=== PATIENT | female | born 1955 | race Caucasian/White ===

== ENCOUNTER → 2016-09-08 | Outpatient (CLI) | payer OTHER ==
[2016-09-08 13:01] LABS: BLOOD UREA NITROGEN 22 mg/dl (7-18); BUN/CREATININE RATIO 33.6 (10-20); CALCIUM 9.1 mg/dl (8.5-10.1); CARBON DIOXIDE 31 mmol/L (21-32); CHLORIDE 105 mmol/L (98-107); CHOLESTEROL 187 mg/dl (0-200); CREATININE 0.65 mg/dl (0.60-1.20); GLUCOSE 108 mg/dl (70-99); POTASSIUM 3.8 mmol/L (3.5-5.1); SODIUM 141 mmol/L (136-145)
[2016-09-08 13:05] LABS: HDL CHOLESTEROL 62 mg/dl; LDL CHOLESTEROL CALCULATED 108 mg/dl; TRIGLYCERIDES 85 mg/dl (0-150); VERY LOW DENSITY LIPOPROT CALC 17 mg/dl
[2016-09-08 13:07] LABS: ESTIMATED AVERAGE GLUCOSE 126 mg/dl; HA1C FLAG Normal (Normal)
== END | disposition home or self-care (01) ==
LOC: C.LABPBG 07:28
PROVIDERS: ATTEND Physician Assistant
DX: I10 Essential (primary) hypertension (principal); Z13.220 Encounter for screening for lipoid disorders; Z13.1 Encounter for screening for diabetes mellitus

== ENCOUNTER → 2016-11-18 | Outpatient (CLI) | payer OTHER ==
--- NOTE | 2016-11-18 09:43 | DIAGNOSTIC IMAGING REPORT ---
EXAMINATION: RENAL ULTRASOUND CLINICAL HISTORY: Low back/flank pain. COMPARISON STUDY: FINDINGS: The right kidney measures 10.2 cm. The left kidney measures 10.1 cm. There is no evidence of hydronephrosis. There are no renal masses. No bladder abnormalities are visualized. Bilateral ureteral jets were visualized. IMPRESSION : Normal renal ultrasound. Electronically signed by: Eric Camilo M.D. 11/18/2016 9:42 AM Dictated Date/Time: 11/18/2016 9:41 AM
--- NOTE | 2016-11-18 10:10 | DIAGNOSTIC IMAGING REPORT ---
L-SPINE MIN 4 VIEWS ROUTINE CLINICAL HISTORY: Low back pain with radiation. COMPARISON: None FINDINGS: There is slight rightward curvature of the lumbar spine. Vertebral body heights are maintained. There is no fracture or suspicious lesion. Disc spaces are preserved. There is moderate multilevel facet arthrosis. A 1.3 cm calcific density within the left upper quadrant is indeterminate. IMPRESSION: 1. No lumbar spine fracture. 2. Mild multilevel degenerative disc disease and moderate multilevel facet arthrosis of the lumbar spine. Electronically signed by: Nabil Kahn M.D. 11/18/2016 10:08 AM Dictated Date/Time: 11/18/2016 9:57 AM
== END | disposition home or self-care (01) ==
LOC: C.ULTR 09:15
PROVIDERS: ATTEND Physician Assistant
DX: M54.40 Lumbago with sciatica, unspecified side (principal)

== ENCOUNTER 2019-12-01 16:05 | Observation (INO) ==
[2019-12-01] MEDS ORDERED: NITROGLYCERIN SL 0.4 MG/TAB TAB SL STA (16:22)
[2019-12-01] MEDS ORDERED: ASPIRIN CHEW 324 MG PO STA (16:24)
--- NOTE | 2019-12-01 16:33 | Emergency Department Note ---
History of Present Illness General Chief complaint: Chest Pain Stated complaint: CHEST PAINS Time Seen by Provider: 12/01/19 16:16 Source: patient, RN notes reviewed and old records reviewed Mode of arrival: ambulatory Limitations: no limitations History of Present Illness Provider complaint: Chest pain Onset (ago): week(s) 1 Location: chest Radiation: extremity (left shoulder) Severity: moderate Pain Consistency: + constant Maximum Pain Intensity: 5 Current Pain Intensity: 5 Quality: + sharp Relieved By: + immobilization Exacerbated By: + movement Associated symptoms: + weakness; no diaphoresis, no fever/chills, no nausea/vomiting and no shortness of breath Treatments prior to arrival: none This is a 64-year-old female who presents emergency department complaining of left-sided chest pain that radiates up into her left shoulder that has been ongoing for the past week. Patient relates that the chest pain is made worse by walking. She was on a walk the other day and had to stop because the pain be came so severe. She relates that rest makes the chest pain better. She does have a history of hypertension as well as sleep apnea. She also reports that the chest pain is made worse with deep breaths. Home Medications Home Medications Medication Instructions Recorded Confirmed Type CPAP Machine #1 ea 01/19/19 04/26/19 Rx miscellaneous medical supply #1 ea 01/19/19 04/26/19 Rx CPAP Machine #1 ea 03/28/19 04/26/19 Rx cholecalciferol (vitamin D3) 100 4,000 units PO DAILY #30 cap 04/30/19 12/01/19 Rx mcg (4,000 unit) capsule lisinopril 5 mg tablet 5 mg PO DAILY #90 tab 11/20/19 12/01/19 Rx ropinirole 1 mg tablet 1 mg PO HS #90 tab 11/20/19 12/01/19 Rx colchicine [Colcrys] 0.6 mg PO BID 30 Days #60 tab 12/02/19 Rx ibuprofen 600 mg PO TID 30 Days #90 tab 12/02/19 Rx Allergies Allergy/AdvReac Type Severity Reaction Status Date / Time No Known Allergies Allergy Verified 12/01/19 17:40 Past Med/Surg History Medical History Degenerative disc disease Dyslipidemia Hypertension Obstructive sleep apnea Prediabetes Restless leg syndrome Rheumatic heart disease Vitamin D deficiency Surgical History H/O adenoidectomy H/O section x 3 History of arthroscopy of shoulder (07/2011) WITH ROTATOR CUFF REPAIR ONSET:[id number] History of hysterectomy (2006) SECONDARY TO PROLAPSE ONSET:2006 History of tonsillectomy Family History Father Cardiac disorder Myocardial infarction Mother Diabetes Lung disease Brother Coronary heart disease Hx of CABG Denies family history of Ovarian cancer Prostate cancer Breast cancer Colorectal cancer Social History Preferred Language: Ukrainian Communication Ability: Effective Visual Impairment: No Limitations Hearing Ability: Normal Sterile Processing Technologist Required: No Beliefs That Will Affect Care: None marital status: Current Living Situation: Significant Other current occupational status: employed current occupation: CUSTOMER SERVICE Feels Safe at Home: Yes Smoking Status: Never smoker Second Hand Exposure: No ; Hx Alcohol Use: No Hx Substance Use: No Childhood Exposure to Second-Hand Smoke: Yes Diet Comment: arley;ar caffeine: Yes (coffee, half/ half) during the past year weight has: remained stable Dental Care, Regularly: Yes Physical Activity Frequency Comment: LIMITED BY PHYSICAL CONDITION Seatbelt Use: always Sunscreen Use: Yes Review of Systems A total of 10 systems reviewed and were otherwise negative Physical Exam Vital Signs Vital Signs - 24 hr 12/01/19 19:07 Pulse Rate 67 Respiratory Rate 15 Blood Pressure 131/77 Blood Pressure Mean 95 Pulse Oximetry 96 VITAL SIGNS - Vital signs and nursing notes were reviewed. GENERAL - 64-year-old female appearing stated age who is in no acute distress. Communicates well with provider and answers questions appropriately. SKIN - Without rashes. HEAD - NC/AT. EYES - PERRL with EOMI bilaterally. Sclera anicteric. Palpebral conjunctiva pink and moist with no injection noted. EARS - No deformities of external structures noted on gross examination bilaterally. No pain elicited with palpation of the tragus bilaterally. External auditory canals without discharge or otorrhea. Tympanic membranes pearly richard without retraction or bulging. No fluid or purulent material visualized behind the TM. Handle of malleus, umbo, cone of light, pars tensa/flaccid all easily visualized. NOSE - Midline and without cyanosis. No epistaxis or purulent drainage noted. Septum midline without deviation or septal hematoma noted. MOUTH/OROPHARYNX - Without perioral cyanosis. Buccal mucosa pink and moist and without leukoplakia. Tongue midline with equal elevation of palate bilaterally. No tonsillar hypertrophy, erythema, or exudates noted. dentition noted. NECK - Neck with FROM. Supple to palpation. lymphadenopathy noted. No nuchal rigidity. LUNGS - Chest wall symmetric without accessory muscle use, intercostals retractions, or central cyanosis. Normal vesicular breath sounds CTA B/L. No wheezes, rales, or rhonchi appreciated. CARDIAC - RRR with S1/S2. No murmur, rubs, or gallops appreciated. ABDOMEN - Abdominal contour without pulsations or visible masses. BS normoactive all four quadrants. No tenderness, palpable masses, hepatosplenomegaly, or ascites noted. EXTREMITIES - No clubbing or peripheral cyanosis. No pretibial edema present. +3/5 radial, posterior tibial, and dorsalis pedis pulses palpated throughout. +5/5 strength noted in UE/LE bilaterally. NEUROLOGIC - Cranial nerves II through XII grossly intact. Sensory intact to light touch throughout. Patellar reflexes +2/4. PSYCH - A&Ox3 and cooperates fully with examiner. Pt is very pleasant and interacts well with examiner. Course Administered Medications Discontinued Medications Acetaminophen (Tylenol) 500 mg PO Q4H PRN PRN Reason: Pain Stop: 01/01/20 08:44 Last Admin: 12/02/19 12:08 Dose: 500 mg Documented by: [id number] Aspirin (Aspirin) 324 mg PO NOW STA Stop: 12/01/19 16:25 Last Admin: 12/01/19 16:47 Dose: 324 mg Documented by: [id number] Aspirin (Ecotrin) 325 mg PO BID PATRICIA Stop: 12/08/19 21:14 Last Admin: 12/02/19 08:05 Dose: 325 mg Documented by: [id number] Admin: 12/01/19 22:47 Dose: 325 mg Documented by: [id number] Colchicine (Colcrys) 1.2 mg PO NOW ONE Stop: 12/01/19 19:57 Last Admin: 12/01/19 21:27 Dose: 1.2 mg Documented by: [id number] Colchicine (Colcrys) 0.6 mg PO BID PATRICIA Stop: 01/01/20 08:59 Last Admin: 12/02/19 08:04 Dose: 0.6 mg Documented by: [id number] Nitroglycerin (Nitrostat) 0.4 mg SL NOW STA Stop: 12/01/19 16:23 Last Admin: 12/01/19 16:48 Dose: 0.4 mg Documented by: [id number] Nitroglycerin (Nitro-Bid 2%) 1 inch EXT NOW STA Stop: 12/01/19 16:54 Last Admin: 12/01/19 17:54 Dose: 1 inch Documented by: [id number] Ropinirole HCl (Requip) 1 mg PO HS PATRICIA Stop: 12/31/19 21:14 Last Admin: 12/01/19 22:49 Dose: 1 mg Documented by: [id number] Vitamin D (Vitamin D3) 4,000 units PO DAILY PATRICIA Stop: 01/01/20 08:59 Last Admin: 12/02/19 08:04 Dose: 4,000 units Documented by: [id number] Medical Decision Making Differential Diagnosis Cardiac ischemia, aortic dissection, pulmonary embolism, pneumothorax, pneumonia, pericarditis, myocarditis, esophageal rupture, GERD, cholecystitis, pancreatitis, musculoskeletal, as well as other pathologies. Medical Records Attestation: I reviewed the patient's medical records. Home Medications Current Medication List: was personally reviewed by me Laboratory Data Attestation: I reviewed the patient's lab results. Result diagrams: 12/02/19 06:32 12/02/19 06:32 Lab Results 12/01/19 12/01/19 12/01/19 Range/Units 16:43 16:43 16:43 WBC 8.71 (4.8-10.8) K/uL RBC 4.71 (4.2-5.4) M/uL Hgb 13.3 (12.0-16.0) g/dL Hct 40.3 (37-47) % MCV 85.6 (80-100) fL MCH 28.2 (25-34) pg MCHC 33.0 (32-36) g/dL RDW Std Deviation 43.2 (36.4-46.3) fL RDW Coeff of Patito 13.7 (11.5-14.5) % Plt Count 169 (130-400) K/uL MPV 9.8 (7.4-10.4) fL Immature Gran % (Auto) 0.2 % Neut % (Auto) 63.8 % Lymph % (Auto) 28.2 % George % (Auto) 6.1 % Eos % (Auto) 1.4 % Baso % (Auto) 0.3 % Immature Gran # (Auto) 0.02 (0.00-0.02) K/uL Neut # (Auto) 5.55 (1.4-6.5) K/uL Lymph # (Auto) 2.46 (1.2-3.4) K/uL George # (Auto) 0.53 (0.11-0.59) K/uL Eos # (Auto) 0.12 (0-0.5) K/uL Baso # (Auto) 0.03 (0-0.2) K/uL ESR (0-21) mm/hr PT 11.3 (9.0-12.0) Seconds INR 1.1 (0.9-1.1) APTT 28.8 (21.0-31.0) Seconds PTT Ratio 1.0 D-Dimer 320 (0-500) ug/L FEU Sodium 138 (136-145) mmol/L Potassium 3.6 (3.5-5.1) mmol/L Chloride 106 (98-107) mmol/L Carbon Dioxide 26 (21-32) mmol/L Anion Gap 6.0 (3-11) BUN 16 (7-18) mg/dl Creatinine 0.71 (0.6-1.2) mg/dl Est Cr Clr Drug Dosing 74.4 ml/min Est GFR ( Amer) 104.3 Est GFR (Non-Af Amer) 90.0 BUN/Creatinine Ratio 22.8 H (10-20) Glucose 92 (70-99) mg/dl Calcium 8.9 (8.5-10.1) mg/dl Total Bilirubin 0.4 (0.2-1) mg/dl AST 27 (15-37) U/L ALT 66 (12-78) U/L Alkaline Phosphatase 84 (45-117) U/L Total Creatine Kinase 107 (26-192) U/L CK-MB (CK-2) 4.2 H (0.5-3.6) ng/ml CK/CKMB % Calc 3.9 H (0-3.0) Troponin I < 0.015 (0-0.045) ng/ml C-Reactive Protein 0.36 H (0-0.29) mg/dl Total Protein 7.3 (6.4-8.2) gm/dl Albumin 3.7 (3.4-5.0) gm/dl Globulin 3.6 (2.5-4.0) gm/dl Albumin/Globulin Ratio 1.0 (0.9-2) Lipase 82 (73-393) U/L 12/01/19 12/01/19 Range/Units 16:43 18:40 WBC (4.8-10.8) K/uL RBC (4.2-5.4) M/uL Hgb (12.0-16.0) g/dL Hct (37-47) % MCV (80-100) fL MCH (25-34) pg MCHC (32-36) g/dL RDW Std Deviation (36.4-46.3) fL RDW Coeff of Patito (11.5-14.5) % Plt Count (130-400) K/uL MPV (7.4-10.4) fL Immature Gran % (Auto) % Neut % (Auto) % Lymph % (Auto) % George % (Auto) % Eos % (Auto) % Baso % (Auto) % Immature Gran # (Auto) (0.00-0.02) K/uL Neut # (Auto) (1.4-6.5) K/uL Lymph # (Auto) (1.2-3.4) K/uL George # (Auto) (0.11-0.59) K/uL Eos # (Auto) (0-0.5) K/uL Baso # (Auto) (0-0.2) K/uL ESR 18 (0-21) mm/hr PT (9.0-12.0) Seconds INR (0.9-1.1) APTT (21.0-31.0) Seconds PTT Ratio D-Dimer (0-500) ug/L FEU Sodium (136-145) mmol/L Potassium (3.5-5.1) mmol/L Chloride (98-107) mmol/L Carbon Dioxide (21-32) mmol/L Anion Gap (3-11) BUN (7-18) mg/dl Creatinine (0.6-1.2) mg/dl Est Cr Clr Drug Dosing ml/min Est GFR ( Amer) Est GFR (Non-Af Amer) BUN/Creatinine Ratio (10-20) Glucose (70-99) mg/dl Calcium (8.5-10.1) mg/dl Total Bilirubin (0.2-1) mg/dl AST (15-37) U/L ALT (12-78) U/L Alkaline Phosphatase (45-117) U/L Total Creatine Kinase (26-192) U/L CK-MB (CK-2) (0.5-3.6) ng/ml CK/CKMB % Calc (0-3.0) Troponin I < 0.015 (0-0.045) ng/ml C-Reactive Protein (0-0.29) mg/dl Total Protein (6.4-8.2) gm/dl Albumin (3.4-5.0) gm/dl Globulin (2.5-4.0) gm/dl Albumin/Globulin Ratio (0.9-2) Lipase (73-393) U/L Imaging Data Radiologist's Impression: [facility] [place] [phone] XRay Report Patient: MARYLU CEVALLOS Date: 12/01/19 MR#: [id number]: [address] [place] [address] Acct ID:[id number]: Date: [address] [place] [address] Zip: [place] [address] Age: 64Location: ED Sex: F Room/Bed: Att Phy:Diagnosis: CHEST PAINS Kaylynn Phy: Michelle Costello, DOService Date: 12/01/19 Fam Phy:Interpreting Phy: Stevie Helton MD Admit Phy: Ordering Phy: Silvestre Vela MD cc: ~ XR chest 1V portable CLINICAL HISTORY: Chest Pain dyspnea COMPARISON STUDY: No previous studies for comparison. FINDINGS: The bones soft tissues and hemidiaphragms are normal. The cardiomediastinal silhouette is normal. The lungs are clear. The pulmonary vasculature is normal. IMPRESSION: Negative chest. ACT 112: Negative or not required by law. The above report was generated using voice recognition software. It may contain grammatical, syntax or spelling errors. Electronically signed by: Stevie Helton M.D. 12/01/2019 5:08 PM Dictated: 12/01/191707 Transcribed: 12/01/191707 ECG Data Attestation: I personally reviewed and interpreted this ECG as follows: Indication: chest pain Rate (beats per minute): 66 Rhythm: normal sinus Findings: + other (Premature SVC) and + prolonged QT (410); no ST depression and no ST elevation Comparison ECG Date: no prior available MDM Narrative Patient was seen and evaluated as above in room B12. Review was performed of nursing notes and vital signs. I did review pertinent previous visits and patient history. After obtaining a thorough history and physical examination the above work up was performed. This is a 64-year-old female who presents emergency department complaining of chest pain that gets worse with exertion that has been ongoing for the past week. Serial EKGs were performed here in the emergency department and at no time to the patient exhibited cardiac ischemia. Her troponin was found to be 0 however her chest pain was relieved by nitro. Based on this along with the patient's story I did discuss the case with the hospitalist service who did agree to omit the patient. Patient is in agreement with the treatment plan. An order was placed for continuous cardiac monitoring. The monitor shows a rate of 59 with Normal Sinus rhythm. The patient was evaluated during the global COVID-19 pandemic, and that diagnosis was suspected/considered upon their initial presentation. Their evaluation, treatment and testing was consistent with current guidelines for pat ients who present with complaints or symptoms that may be related to COVID-19. Impression & Plan Chest pain Discharge Plan Visit Data *Final* Discharge Date/Time: 12/01/19 20:32 Chief Complaint: Chest Pain Stated Complaint: CHEST PAINS ED Provider: Silvestre Vela Discharge Problem: Chest pain Patient Disposition: Admitted As Inpatient Discharge Instructions Interventions: ED Discharge Assessment Last Done: 12/01/19 20:32 Discharge Problem: Chest pain Qualifiers: Chest pain type: unspecified Qualified Code(s): R07.9 - Chest pain, unspecified
[2019-12-01] MEDS ORDERED: NITROGLYCERIN 2% OINTMENT 30GM TUBE EXT STA (16:53)
[2019-12-01 16:54] LABS: Basophils # (auto) 0.03 K/uL (0-0.2); Basophils % (auto) 0.3 %; Eosinophils # (auto) 0.12 K/uL (0-0.5); Eosinophils % (auto) 1.4 %; Hematocrit (blood only) 40.3 % (37-47); Hemoglobin 13.3 g/dL (12.0-16.0); Immature Granulocytes # (auto) 0.02 K/uL (0.00-0.02); Immature Granulocytes % (auto) 0.2 %; Lymphocytes # (auto) 2.46 K/uL (1.2-3.4); Lymphocytes % (auto) 28.2 %; Mean Corpuscular Hemoglobin 28.2 pg (25-34); Mean Corpuscular Volume 85.6 fL (80-100); Mean Platelet Volume 9.8 fL (7.4-10.4); Monocytes # (auto) 0.53 K/uL (0.11-0.59); Monocytes % (auto) 6.1 %; Neutrophils # (auto) 5.55 K/uL (1.4-6.5); Neutrophils % (auto) 63.8 %; Platelet Count 169 K/uL (130-400); RDW Coefficient of Variation 13.7 % (11.5-14.5); RDW Standard Deviation 43.2 fL (36.4-46.3); Red Blood Count 4.71 M/uL (4.2-5.4); White Blood Count 8.71 K/uL (4.8-10.8)
[2019-12-01 17:08] LABS: D Dimer 320 ug/L FEU (0-500); INR 1.1 (0.9-1.1); Partial Thromboplastin Time 28.8 Seconds (21.0-31.0); Prothrombin Time 11.3 Seconds (9.0-12.0)
--- NOTE | 2019-12-01 17:10 | XRay Report ---
XR chest 1V portable CLINICAL HISTORY: Chest Pain dyspnea COMPARISON STUDY: No previous studies for comparison. FINDINGS: The bones soft tissues and hemidiaphragms are normal. The cardiomediastinal silhouette is n ormal. The lungs are clear. The pulmonary vasculature is normal. IMPRESSION: Negative chest. ACT 112: Negative or not required by law. The above report was generated using voice recognition software. It may contain grammatical, syntax or spelling errors. Electronically signed by: Stevie Helton M.D. 12/01/2019 5:08 PM
[2019-12-01 17:27] LABS: Alanine Aminotransferase 66 U/L (12-78); Albumin Level 3.7 gm/dl (3.4-5.0); Aspartate Aminotransferase 27 U/L (15-37); BUN Creatinine Ratio 22.8 (10-20); Blood Urea Nitrogen 16 mg/dl (7-18); Calcium 8.9 mg/dl (8.5-10.1); Carbon Dioxide 26 mmol/L (21-32); Chloride 106 mmol/L (98-107); Creatinine Clr Calc Pharmacy 74.4 ml/min; Est GFR (African American) 104.3; Glucose 92 mg/dl (70-99); Lipase 82 U/L (73-393); Potassium 3.6 mmol/L (3.5-5.1); Sodium 138 mmol/L (136-145)
[2019-12-01 17:32] LABS: Alkaline Phosphatase 84 U/L (45-117); Bilirubin,Total 0.4 mg/dl (0.2-1); Creatine Kinase 107 U/L (26-192); Creatine Kinase MB 4.2 ng/ml (0.5-3.6); Globulin 3.6 gm/dl (2.5-4.0); Total Protein 7.3 gm/dl (6.4-8.2); Troponin I < 0.015 ng/ml (0-0.045)
--- NOTE | 2019-12-01 19:24 | History & Physical Report ---
Date of Service December 01, 2019 Assessment & Plan (1) Chest pain: Most likely pericarditis with no troponin rise and pain ongoing for last week. No troponin rise since worst pain this morning at 6am and lab taken 12 hours after this therefore goal is not for complete pain relief. Low likelihood PE given more likely alternative explanation, not tachycardic - no need for CT for PE at the current time. Admit to med/tele Monitor on telemetry overnight As history, exam and EKG not conclusive of pericarditis will consult cardiology as use aspirin initially rather than ibuprofen. CRP only mildly elevated. (2) Pericarditis: Repeat EKG in AM. If more conclusive evidence of this can switch ASA to ibuprofen Start colchicine 1.2g now, then continue 0.6mg PO BID ASA 325mg now then BID (3) Hypertension: Continue lisinopril 5mg HS (4) Obstructive sleep apnea: CPAP HS (5) Restless leg syndrome: Continue ropinirole 1mg PO daily (6) Prediabetes: HbA1C 6.2 Continue on heart healthy diet while here (7) DVT prophylaxis: SCDs Admission and Anticipated Discharge Date Admission Date: December 01, 2019 History of Present Illness Chief Complaint: Chest pain Primary Care Provider: DO Meme Toth Dioni is a 64 year old female with hypertension and obstructive sleep apnea who presents to the ER due to ongoing chest pain. She has been having ongoing chest pain for the past week, Left anterior chest, aching/heaviness, worse on exertion but never has completely resolved for the past week. Worst episode was this morning with new radiating pain to her left shoulder lasting for around 30 minutes came on at rest and resolved spontaneously. Never had a similar pain like this previously. Current severity in the ER after ASA given 09/20. No change with nitro given in ER. She had not noticed a positional change to her pain but on admission she was asked to sit up and lean over which provided her with some relief. She is compliant with her CPAP machine for SIN. No shortness of breath, fevers, cough, known COVID-19 exposure. Allergies Allergy/AdvReac Type Severity Reaction Status Date / Time No Known Allergies Allergy Verified 12/01/19 17:40 Home Medications Home Medications Medication Instructions Recorded Confirmed Type CPAP Machine #1 ea 01/19/19 04/26/19 Rx miscellaneous medical supply #1 ea 01/19/19 04/26/19 Rx CPAP Machine #1 ea 03/28/19 04/26/19 Rx cholecalciferol (vitamin D3) 100 4,000 units PO DAILY #30 cap 04/30/19 12/01/19 Rx mcg (4,000 unit) capsule lisinopril 5 mg tablet 5 mg PO DAILY #90 tab 11/20/19 12/01/19 Rx ropinirole 1 mg tablet 1 mg PO HS #90 tab 11/20/19 12/01/19 Rx Past Med/Surg History Medical History Degenerative disc disease Dyslipidemia Hypertension Obstructive sleep apnea Prediabetes Restless leg syndrome Rheumatic heart disease Vitamin D deficiency Surgical History H/O adenoidectomy H/O section x 3 History of arthroscopy of shoulder (07/2011) WITH ROTATOR CUFF REPAIR ONSET:[id number] History of hysterectomy (2006) SECONDARY TO PROLAPSE ONSET:2006 History of tonsillectomy Family History Father Cardiac disorder Myocardial infarction Mother Diabetes Lung disease Brother Coronary heart disease Hx of CABG Denies family history of Ovarian cancer Prostate cancer Breast cancer Colorectal cancer Social History Preferred Language: Pashto Communication Ability: Effective Visual Impairment: No Limitations Hearing Ability: Normal High School Science Teacher Required: No Beliefs That Will Affect Care: None marital status: Current Living Situation: Significant Other current occupational status: employed current occupation: CUSTOMER SERVICE Other Information That Helps Us Care for You: No Feels Safe at Home: Yes Safety Concerns: Feels Safe At This Time Smoking Status: Never smoker Second Hand Exposure: No ; Hx Alcohol Use: No Hx Substance Use: No Childhood Exposure to Second-Hand Smoke: Yes Diet Comment: arley;ar caffeine: Yes (coffee, half/ half) during the past year weight has: remained stable Dental Care, Regularly: Yes Physical Activity Frequency Comment: LIMITED BY PHYSICAL CONDITION Seatbelt Use: always Sunscreen Use: Yes Review of Systems Review of Systems: All systems reviewed & are unremarkable except as noted in HPI & below Physical Exam Constitutional: WD/WN, vitals as above no acute distress (despite ongoing chest pain) Eyes: + anicteric sclerae; normal pupil size ENMT: external ear and nose normal, oropharynx normal Neck: trachea midline, no thyromegaly Respiratory: normal respiratory effort, lungs clear to auscultation Cardiovascular: Rate/Rhythm: regular rate and regular rhythm Heart Sounds: + murmur (GERRI loudest LUSB) Vessels: no JVD Extremities: normal capillary refill; no calf tenderness and no pedal edema Chest (Breasts): Chest: normal inspection of chest (pain not reproducible on palpation) Gastrointestinal (Abdomen): normal bowel sounds, soft, nontender, no hepatosplenomegaly Musculoskeletal: no cyanosis or clubbing, extremities motor strength 5/5 Skin: no rashes, warm and dry Neurologic: moves all extremities and awake; no focal motor deficits and not confused Speech / Cognition: normal speech Motor/Sensory: no tremor, no pronator drift and no sensory deficit Psychiatric: A+Ox3, euthymic affect Genitourinary: no CVA tenderness Lymphatic: no cervical or axillary lymphadenopathy Results & Data Results & Data ([facility]) Vital Signs (Past 12 Hours) Vital Signs Temp Pulse Resp BP Pulse Ox 12/01/19 19:07 67 15 131/77 96 12/01/19 18:30 66 16 130/62 97 12/01/19 18:00 66 16 132/68 97 12/01/19 17:45 66 16 97 12/01/19 17:31 62 15 97 12/01/19 17:30 60 14 130/62 97 12/01/19 17:15 61 18 95 12/01/19 17:00 67 17 133/67 94 12/01/19 16:52 70 21 95 12/01/19 16:49 73 15 153/66 H 95 12/01/19 16:30 68 20 95 12/01/19 16:08 36.9 C 68 20 146/87 H 96 Diagnostic Findings XR chest 1V portable IMPRESSION: Negative chest. ECG Indication: chest pain Rate (beats per minute): 66 Rhythm: normal sinus Findings: no acute ischemic change Comparison ECG Date: no prior available Code Status & VTE Plan Code Status Full VTE Prophylaxis Plan VTE Prophylaxis will be ordered: Yes Reason for no VTE drug order: Treatment not indicated PG Care Time/CCT Total # of Minutes Spent Total Time Spent with Patient: Total time spent is greater than 50% in coordination of care (as documented) at patient's floor/unit and/or counseling patient: Coding Level of Care Code 90707 OBS Care - Level 3 Diagnoses Chest pain R07.9 Pericarditis I31.9 Hypertension I10 Obstructive sleep apnea G47.33 Restless leg syndrome G25.81 Prediabetes R73.03 DVT prophylaxis Z29.9
[2019-12-01 19:54] LABS: C Reactive Protein 0.36 mg/dl (0-0.29)
[2019-12-01] MEDS ORDERED: COLCHICINE 0.6 MG TAB PO ONE (19:56)
[2019-12-01] MEDS ORDERED: ROPINIROLE HCL 1 MG TABLET PO SCH (21:15)
[2019-12-01] MEDS: ASPIRIN 325 MG ECTAB PO SCH (22:47)
[2019-12-02 06:54] LABS: Hematocrit (blood only) 39.7 % (37-47); Hemoglobin 12.4 g/dL (12.0-16.0); Mean Corpuscular Hemoglobin 26.9 pg (25-34); Mean Corpuscular Hgb Conc 31.2 g/dL (32-36); Mean Corpuscular Volume 86.1 fL (80-100); Mean Platelet Volume 9.7 fL (7.4-10.4); Platelet Count 163 K/uL (130-400); RDW Coefficient of Variation 13.9 % (11.5-14.5); RDW Standard Deviation 43.7 fL (36.4-46.3); Red Blood Count 4.61 M/uL (4.2-5.4); White Blood Count 6.56 K/uL (4.8-10.8)
[2019-12-02 07:20] LABS: BUN Creatinine Ratio 26.1 (10-20); Blood Urea Nitrogen 17 mg/dl (7-18); Calcium 8.4 mg/dl (8.5-10.1); Carbon Dioxide 29 mmol/L (21-32); Chloride 106 mmol/L (98-107); Creatinine Clr Calc Pharmacy 83.9 ml/min; Est GFR (African American) 109.9; Est GFR (Non-African American) 94.8; Glucose 108 mg/dl (70-99); Potassium 3.8 mmol/L (3.5-5.1); Sodium 140 mmol/L (136-145)
[2019-12-02 07:24] LABS: Troponin I < 0.015 ng/ml (0-0.045)
[2019-12-02] MEDS: ASPIRIN 325 MG ECTAB PO SCH (08:05)
[2019-12-02] MEDS ORDERED: ACETAMINOPHEN 500 MG TAB PO PRN (08:45)
[2019-12-02] MEDS ORDERED: lisinopriL 5 MG TAB PO SCH (09:00)
[2019-12-02] MEDS ORDERED: CHOLECALCIFEROL 1,000 UNITS 25 MCG TAB PO SCH (09:00)
[2019-12-02] MEDS ORDERED: COLCHICINE 0.6 MG TAB PO SCH (09:00)
--- NOTE | 2019-12-02 12:15 | Cardiology Consultation ---
Date of Consultation December 02, 2019 Assessment & Plan (1) Chest pain: -constant chest pain x1 week does not favor coronary artery disease. -possible atypical presentation of pericarditis. -has improved with colchicine and ibuprofen. (2) Hypertension: -adequate control the currently. -lisinopril on hold. (3) Rheumatic heart disease: -she is scheduled for an outpatient echocardiogram next month. History of Present Illness Attending Physician: Junior Bustillos MD History of Present Illness Mrs. Wheatley is a 64-year-old female admitted yesterday because of a chest pain syndrome. This consultation was ordered to assist in her management. The patient was in her usual state of health until approximately 1 week ago. She noticed a left anterior chest heaviness which occasionally radiated to her left axilla. There were no associated symptoms such as shortness of breath, nausea, vomiting, or diaphoresis. The patient's chest discomfort was worse with deep inspiration, and occasionally with physical activity. Her discomfort has not resolved since starting 1 week ago. Treatment for possible pericarditis was initiated in the emergency room. The patient feels that her chest symptoms have improved since starting colchicine and ibuprofen. The patient does not recall a recent illness. Past medical and surgical history 1. Hypertension next 2. Hypercholesterolemia 3. Hyperglycemia 4. Obstructive sleep apnea 5. Rheumatic fever as a child 6. Vitamin-D deficiency 7. Degenerative disc disease 8. Restless leg syndrome 9. x3 10. Rotator cuff repair 11. Tonsillectomy Social history and lives with her No tobacco alcohol Family history No early coronary artery disease Review systems A 10 point review systems was negative except for that described above. Allergies Allergy/AdvReac Type Severity Reaction Status Date / Time No Known Allergies Allergy Verified 12/01/19 17:40 Home Medications Home Medications Medication Instructions Recorded Confirmed Type CPAP Machine #1 ea 01/19/19 04/26/19 Rx miscellaneous medical supply #1 ea 01/19/19 04/26/19 Rx CPAP Machine #1 ea 03/28/19 04/26/19 Rx cholecalciferol (vitamin D3) 100 4,000 units PO DAILY #30 cap 04/30/19 12/01/19 Rx mcg (4,000 unit) capsule lisinopril 5 mg tablet 5 mg PO DAILY #90 tab 11/20/19 12/01/19 Rx ropinirole 1 mg tablet 1 mg PO HS #90 tab 11/20/19 12/01/19 Rx Patient History Medical History Degenerative disc disease Dyslipidemia Hypertension Obstructive sleep apnea Prediabetes Restless leg syndrome Rheumatic heart disease Vitamin D deficiency Surgical History H/O adenoidectomy H/O section x 3 History of arthroscopy of shoulder (07/2011) WITH ROTATOR CUFF REPAIR ONSET:[id number] History of hysterectomy (2006) SECONDARY TO PROLAPSE ONSET:2006 History of tonsillectomy Family History Father Cardiac disorder Myocardial infarction Mother Diabetes Lung disease Brother Coronary heart disease Hx of CABG Denies family history of Ovarian cancer Prostate cancer Breast cancer Colorectal cancer Social History Preferred Language: Bengali Communication Ability: Effective Visual Impairment: No Limitations Hearing Ability: Normal Plant And Maintenance Technician Required: No Beliefs That Will Affect Care: None marital status: Current Living Situation: Significant Other current occupational status: employed current occupation: CUSTOMER SERV[employer] Other Information That Helps Us Care for You: No Feels Safe at Home: Yes Safety Concerns: Feels Safe At This Time Smoking Status: Never smoker Second Hand Exposure: No ; Hx Alcohol Use: No Hx Substance Use: No Childhood Exposure to Second-Hand Smoke: Yes Diet Comment: arley;ar caffeine: Yes (coffee, half/ half) during the past year weight has: remained stable Dental Care, Regularly: Yes Physical Activity Frequency Comment: LIMITED BY PHYSICAL CONDITION Seatbelt Use: always Sunscreen Use: Yes Physical Exam Physical Exam: In general this is an obese white female in no acute distress. HEENT exam is negative. Neck is supple with full carotid upstrokes. There are no carotid bruits. Jugular venous pressure is flat at 90. There is no thyromegaly. Cardiovascular exam reveals a regular rhythm with a normal S1 and S2. No S3, S4, or murmurs are noted. Lungs are clear without rales, rhonchi, or wheezes. Abdomen is soft and nontender without bruits. Extremities reveal intact radial artery pulses bilaterally. There is no peripheral edema. Results & Data ([facility]) Vital Signs (Past 12 Hours) Vital Signs Temp Pulse Pulse Resp BP Pulse Ox 12/02/19 11:22 36.7 C 59 L 18 98/61 L 95 12/02/19 07:21 36.6 C 60 18 100/60 92 12/02/19 07:18 62 12/02/19 03:57 36.5 C 65 18 93/55 L 95 12/02/19 03:20 61 16 94 12/02/19 02:24 63 100/60 12/02/19 00:29 36.4 C L 107 H 19 94/58 L 91 Laboratory Results CBC notes hemoglobin of 12.4, hematocrit 39.7, white count 6.5, platelet count [id number]. Electrolytes notice sodium of 140, potassium 3.8, chloride 106, bicarb 29, BUN 17, creatinine 0.63, glucose of 108. Three troponin I levels were undetectable at less than 0.015. Diagnostic Findings EKG notes normal sinus rhythm without abnormalities. Chest x-ray shows no acute disease. PG Care Time/CCT Total # of Minutes Spent Total Time Spent with Patient: Total time spent is greater than 50% in coordination of care (as documented) at patient's floor/unit and/or counseling patient: Coding Level of Care Code 02492 Office/OBS Consult Lvl 4 Diagnoses Chest pain R07.9 Hypertension I10 Rheumatic heart disease I09.9
--- NOTE | 2019-12-02 13:54 | XCELERA ---
[id number]
--- NOTE | 2019-12-02 14:14 | Discharge Summary ---
Date of Service December 02, 2019 Admission HPI Per Admitting Provider Meme Wheatley is a 64 year old female with hypertension and obstructive sleep apnea who presents to the ER due to ongoing chest pain. She has been having ongoing chest pain for the past week, Left anterior chest, aching/heaviness, worse on exertion but never has completely resolved for the past week. Worst episode was this morning with new radiating pain to her left shoulder lasting for around 30 minutes came on at rest and resolved spontaneously. Never had a similar pain like this previously. Current severity in the ER after ASA given 09/20. No change with nitro given in ER. She had not noticed a positional change to her pain but on admission she was asked to sit up and lean over which provided her with some relief. She is compliant with her CPAP machine for SIN. No shortness of breath, fevers, cough, known COVID-19 exposure. Admission Exam Per Admitting Provider Constitutional: WD/WN, vitals as above no acute distress (despite ongoing chest pain) Eyes: + anicteric sclerae; normal pupil size ENMT: external ear and nose normal, oropharynx normal Neck: trachea midline, no thyromegaly Respiratory: normal respiratory effort, lungs clear to auscultation Cardiovascular: Rate/Rhythm: regular rate and regular rhythm Heart Sounds: + murmur (GERRI loudest LUSB) Vessels: no JVD Extremities: normal capillary refill; no calf tenderness and no pedal edema Chest (Breasts): Chest: normal inspection of chest (pain not reproducible on palpation) Gastrointestinal (Abdomen): normal bowel sounds, soft, nontender, no hepato splenomegaly Musculoskeletal: no cyanosis or clubbing, extremities motor strength 5/5 Skin: no rashes, warm and dry Neurologic: moves all extremities and awake; no focal motor deficits and not confused Speech / Cognition: normal speech Motor/Sensory: no tremor, no pronator drift and no sensory deficit Psychiatric: A+Ox3, euthymic affect Genitourinary: no CVA tenderness Lymphatic: no cervical or axillary lymphadenopathy Principal Diagnosis Acute pericarditis Discharge Exam General: A&Ox3. NAD. Cooperative. HEENT: Atraumatic, normocephalic. Pulm: CTAB A&P. -wheezes, -rales, -rhonchi. Symmetrical chest rise. No increase work of breathing. No respiratory distress. Cardiac: RRR, Soft 2/6 systolic murmur present. Mild central/left chest discomfort improved with tripod position. Radial pulses intact and symmetrical. Abdominal: Nontender, nondistended, soft. BS present. Discharge Data Allergies Allergy/AdvReac Type Severity Reaction Status Date / Time No Known Allergies Allergy Verified 12/01/19 17:40 Consultations 12/01/19 17:48 ED Decision to Admit Stat 12/01/19 21:57 Consult Cardiology Routine 12/02/19 13:45 Consult [facility] caul dresser Routine Hospital Course (1) Pericarditis: Meme is a 64-year-old female with a history of rheumatic fever, hypertension, obstructive sleep apnea, restless leg syndrome, and no prior coronary disease who presented with 1 week of unremitting chest pain improved with tripod position concerning for acute pericarditis. To do as outpatient 1. Follow-up with PCP, reassess need for colchicine/ibuprofen based on symptoms 2. Follow-up with cardiology for history of rheumatic fever with murmur 3. Follow-up management of new prediabetes Acute pericarditis, idiopathic Meme presented with 1 week of central and left-sided chest pain which occasionally spread to her left shoulder but which was not associated with shortness of breath or diaphoresis. She had not been recently ill, and has not been around anyone who is ill. Physical activity and ambulation worsened her pain which gradually receded over 20 to 30 minutes with rest, and which was not associated with diaphoresis or presyncope. On admission her EKG did not show any acute ST changes, and troponin x3 were negative. Cardiology was consulted and did not suspect acute coronary ischemia. Given her history of rheumatic fever a TTE was performed and showed normal ejection fraction, normal wall motion, and trace tricuspid regurgitation. She was started on colchicine and aspirin, and was converted to continue colchicine twice daily and ibuprofen 3 times daily on discharge with follow-up to her primary care physician. She was improving with mild but greatly reduced pain at time of discharge. Repeat EKG on day of discharge did not show any ST changes or signs of acute coronary ischemia. History of rheumatic fever Meme reports a history of rheumatic fever as a child, and had a murmur on exam. TTE showed mild tricuspid regurg but was otherwise normal. She was recommended to follow-up with cardiology in 1 month but also recommended considering a repeat TTE at that time. Hypertension Her blood pressure was elevated on admission in the setting of pain, and decreased to approximately 100 systolic. Her lisinopril was temporarily held, and resumed at discharge with follow-up to her primary care physician. She did not experience any KYRA or elevated creatinine during admission.She did not experience any orthostatic symptoms or lightheadedness or dizziness during admission.Echocardiography showed normal cardiac wall motion and normal ejection fraction as noted above. Obstructive sleep apnea Her home CPAP was continued nightly. Restless leg syndrome She is continued on ropinirole 1 mg daily without exacerbation. Prediabetes On admission she was noted to have a hemoglobin A1c of 6.2%, and was not previously on treatment for diabetes. It was recommended that she follow-up with her primary care provider for regular follow-up especially given her family history of cardiac disease at age 50 in her father. She was continued on a heart healthy diet during admission. (2) Rheumatic heart disease: (3) DVT prophylaxis: (4) Prediabetes: (5) Restless leg syndrome: (6) Obstructive sleep apnea: (7) Hypertension: Total Time Total Time Spent Total Time Spent (In Minutes): See attending documentation Discharge Plan Discharge Items Patient Disposition: Home - Self-Care Reason For Visit: CHEST PAIN R/O [place],PERICARDITIS Discharge Diagnosis: Acute Pericarditis Activity: Resume your previous activity Non-emergency contact: Primary Care Provider Call non-emergency contact if: you have any medication questions, your symptoms worsen, your pain is not controlled, your pain is worsening, your pain is unusual for you, your pain is concerning for you and you have a fever Follow-up/Referrals: Michelle Costello DO [Primary Care Provider] - Diet: Heart Healthy Addtl Attending Provider Instructions: You were seen in the hospital for chest pain consistent with acute pericarditis, and inflammation of the lining surrounding your heart. Your lab work and studies did not show signs of a heart attack or heart attack-like illness. You have been prescribed medications as below. You have had appointments made as below. You have been prescribed a medication for pericarditis, colchicine. Please take colchicine 0.6 mg twice daily by mouth for 3 months. Your outpatient providers may choose to stop this before then, but please continue taking this medication even if you feel better until either advised to stop or 3 months have been completed. You have been prescribed a medication for pericarditis, ibuprofen. Please take ibuprofen 600 mg 3 times daily. You should continue taking ibuprofen until your symptoms improve, and then slowly taper ibuprofen over 2 to 4 weeks after that to prevent a possible recurrence of your symptoms. Ibuprofen may be hard on the kidneys, your kidney function was normal during admission but your outpatient provider may or may not choose to check your kidney function midway through treatment. Your hemoglobin A1c, a marker of average blood sugar, was elevated during admission and suggestive of prediabetes.You have not been started on a blood sugar medication at this time, however you should discuss this test with your primary care provider at your follow-up appointment below. A follow-up appointment is being made for you with your primary care provider, Dr. Costello. You should be seen within 1 week and should receive a call to confirm your appointment. If you do not receive a call, or need to cancel/change your appointment, please call their office at [phone]. A follow-up appointment is being made for you with cardiology. You should be seen in approximately 1 month. You should receive a call to confirm your appointment. If you do not receive a call, or need to cancel/change your appointment, please call their office at . You were noted to have a history of rheumatic heart disease and had a systolic murmur on physical exam. You had a echocardiogram, an ultrasound of your heart, performed during admission and the results showed normal squeezing function. These results will be forwarded to your primary care provider to be discussed with you, and cardiology recommended discussing a possible follow-up ultrasound in approximately 1 month. Please discuss scheduling this test at your followup appointment. If you develop any new or worsening symptoms including fever, chills, sweats, chest pain, chest pressure, difficulty breathing, uncontrolled nausea/vomiting, rash, wheezing, passing out or nearly passing out, bleeding, black/bloody bowel movements, or other new or concerning symptoms please call your primary care physician at [phone]., or call [phone] for re-evaluation in the emergency department if you are very concerned. Pending Studies at Discharge: Yes Studies:: Possible TTE at 1 mo, per cardiology Stand-Alone Forms: My [facility] Dctio, Smoking Cessation Medications and DC Order Prescriptions: New colchicine [Colcrys] 0.6 mg Tablet 0.6 mg PO BID 30 Days Qty: 60 RF: 2 ibuprofen 600 mg tablet 600 mg PO TID 30 Days Qty: 90 RF: 2 Continued (DME) CPAP Machine Misc See Dose Instructions .ROUTE .MEDSUPPLY Qty: 1 RF: 0 (DME) CPAP Supplies Misc See Dose Instructions .ROUTE .MEDSUPPLY Qty: 1 RF: 0 (DME) CPAP Machine Misc See Dose Instructions .ROUTE .MEDSUPPLY Qty: 1 RF: 0 cholecalciferol (vitamin D3) 4,000 unit capsule 4,000 units PO DAILY Qty: 30 RF: 0 lisinopril 5 mg tablet 5 mg PO DAILY Qty: 90 RF: 1 ropinirole 1 mg tablet 1 mg PO HS Qty: 90 RF: 1 Discharge Orders: Discharge Order (Routine); Ordered 12/02/19 Ordered By: Tim Mahajan Admission Data Admit Date/Time: 12/01/19 20:04 Attending Provider: Junior Bustillos Admit Provider: Ron Floyd Primary Care Provider: Michelle Costello Other Providers: Ron Floyd ; Alex Nelson Other Interventions: Discharge Summary Assessment (RN) Last Done: 12/02/19 14:29 Supervising Physician Co-Signing Physician Notes Attending attestation Pt seen and examined in concert with Dr. Mahajan. In agreement with the documented findings as noted in the resident documentation with any exceptions or additions as noted here. Resting comfortably in bed, pain well controlled with colchicine and PRN ibup rofen. On examination, S1/S2 nl RRR, 2/6 GERRI, no CG. CTAB. Abd NT/ND BS+ve Acute pericarditis - cardiology consultation appreciated - contniue colchicine and ibuprofen for symptom control. Follow up with cardiology in 1 mo w/ repeat TTE Impaired fasting glucose - 6.2% - follow with PCP with support for lifestyle change and dietary modification Else see resident documentation as noted. Resident Activity Tracking Resident Involvement: Resident Care Provided Care Provided: Adult Hospital Medicine
--- NOTE | 2019-12-02 14:25 | Electrocardiogram Report ---
Test Reason : Blood Pressure : / mmHG Vent. Rate : 066 BPM Atrial Rate : 066 BPM P-R Int : 166 ms QRS Dur : 086 ms QT Int : 392 ms P-R-T Axes : 061 077 056 degrees QTc Int : 410 ms Sinus rhythm with Premature supraventricular complexes Otherwise normal ECG No previous ECGs available Confirmed by Alex Nelson ([id number]) on 12/02/2019 2:24:51 PM Referred By: REFERRED SELF Confirmed By:Alex Nelson
--- NOTE | 2019-12-02 14:26 | Electrocardiogram Report ---
Test Reason : Blood Pressure : / mmHG Vent. Rate : 066 BPM Atrial Rate : 066 BPM P-R Int : 162 ms QRS Dur : 082 ms QT Int : 400 ms P-R-T Axes : 076 088 062 degrees QTc Int : 419 ms Normal sinus rhythm Normal ECG When compared with ECG of 01-DEC-2019 16:16, (unconfirmed) Premature supraventricular complexes are no longer Present Confirmed by Alex Nelson ([id number]) on 12/02/2019 2:26:01 PM Referred By: REFERRED SELF Confirmed By:Alex Nelson
--- NOTE | 2019-12-02 14:31 | Electrocardiogram Report ---
Test Reason : Blood Pressure : / mmHG Vent. Rate : 066 BPM Atrial Rate : 066 BPM P-R Int : 170 ms QRS Dur : 080 ms QT Int : 418 ms P-R-T Axes : 065 089 080 degrees QTc Int : 438 ms Normal sinus rhythm Low voltage QRS Septal infarct , age undetermined Abnormal ECG When compared with ECG of 01-DEC-2019 19:14, (unconfirmed) Septal infarct is now Present Confirmed by Alex Nelson ([id number]) on 12/02/2019 2:31:35 PM Referred By: REFERRED SELF Confirmed By:Alex Nelson
== END 2019-12-02 16:05 | disposition home or self-care (01) ==
LOC: ED 16:05 → 2N 16:05 → SUATTDRO 20:04 → 2N 20:32